=== PATIENT | male | born 1960 | race Caucasian/White ===

== ENCOUNTER 2021-06-18 17:00 | Emergency (ER) | payer OTHER ==
[~2021-06-18] VITALS: Ht 193 cm; Wt 104.3 kg
--- NOTE | 2021-06-18 17:15 | NUR ---
Dr. Koch at bedside for MSE
[2021-06-18] MEDS ORDERED: TDAP DIPH,PERTUSS,TET VAC/PF 0.5 ML DISP.SYRIN IM ONE ×2 (17:30→17:43)
[2021-06-18] MEDS ORDERED: SULF1TAB48 PO (17:59)
[2021-06-18] MEDS ORDERED: CEPH500C2 PO (18:00)
[2021-06-18 18:07] VITALS: BP 140/90
--- NOTE | 2021-06-18 18:08 | NUR ---
Patient has been cleared for discharge by ER MD. Patient discharged to home in stable condition. Written and verbal after care instructions given. Patient verbalizes understanding of instructions. Stressed follow up or return to ER for worsening s/s. Ambulated out of ED in steady gait.
== END 2021-06-18 18:23 | disposition home or self-care (01) ==
LOC: ER 17:05
DX: L03.115 Cellulitis of right lower limb (principal); Z86.19 Personal history of other infectious and parasitic diseases
CPT/HCPCS: 73590; 90715; J3490; J7030

== ENCOUNTER 2022-06-03 18:20 | Emergency (ER) | payer OTHER ==
[~2022-06-03] VITALS: Ht 193 cm; Wt 104.3 kg
[~2022-06-03 18:20] MED LIST: CEPH500C2 PO; SULF1TAB48 PO
--- NOTE | 2022-06-03 19:00 | NUR ---
Patient walked to ER with steady gait. NAD noted
--- NOTE | 2022-06-03 19:22 | NUR ---
Dr Miranda in room for VALERIE
[2022-06-03] MEDS: IV NS 1000 ML 1,000 ML IV ONE (19:30)
[2022-06-03] MEDS ORDERED: VANCOMYCIN IV 0 ML ONE (19:33)
[2022-06-03] MEDS ORDERED: VANCOMYCIN HCL 500 MG VIAL ONE (19:33)
[2022-06-03] MEDS ORDERED: KETOROLAC TROMETHAMINE 30 MG INJ ONE (19:34)
[2022-06-03] MEDS ORDERED: VANCOMYCIN IV 200 ML ONE (19:48)
[2022-06-03 19:57] LABS: HEMATOCRIT 35.9 % (36.7-47.1); MEAN CORPUSCULAR HEMOGLOBIN 29.4 uug (23.8-33.4); MEAN CORPUSCULAR VOLUME 86.4 fL (73.0-96.2); PLATELET COUNT (AUTO) 292 K/uL (152-348)
[2022-06-03] MEDS: KETOROLAC TROMETHAMINE 30 MG INJ IVP ONE (19:58)
[2022-06-03] MEDS: VANCOMYCIN 1G/D5W 200 ML PIGGYBACK IV ONE (19:59)
[2022-06-03 20:20] LABS: BILIRUBIN,DIRECT 0.1 mg/dL (0.0-0.2); BILIRUBIN,TOTAL 0.3 mg/dL (0.2-1.0); CREATININE 0.9 mg/dL (0.6-1.3); POTASSIUM 3.4 mmol/L (3.5-5.1); TOTAL PROTEIN, SERUM 7.4 g/dL (6.4-8.2)
[2022-06-03] MEDS ORDERED: SULF1TAB48 PO (21:28)
--- NOTE | 2022-06-03 21:41 | NUR ---
Patient discharged to home in stable condition. Written and verbal after care instructions given. Patient verbalizes understanding of instructions. Stressed follow up or return to ER for worsening s/s. Patient is a/ox4, NAD noted. Patient is able to walk with steady gait
[2022-06-03 21:44] VITALS: BP 135/89
== END 2022-06-03 21:45 | disposition home or self-care (01) ==
LOC: ER 18:22
DX: L03.115 Cellulitis of right lower limb (principal); Z86.19 Personal history of other infectious and parasitic diseases; R03.0 Elevated blood-pressure reading, without diagnosis of hypertension
CPT/HCPCS: 36415; 73590; 85025; A4663; J1885; J3370; J7040

== ENCOUNTER 2024-03-06 03:09 | Emergency (ER) | payer OTHER ==
[~2024-03-06] VITALS: Ht 193 cm; Wt 108.9 kg
[~2024-03-06 03:09] MED LIST changes: -CEPH500C2 PO
[2024-03-06 03:14] VITALS: O2SAT 97
[2024-03-06] MEDS ORDERED: NAPR-1009 PO (04:17)
[2024-03-06] MEDS ORDERED: CEPH500C2 PO (04:17)
[2024-03-06] MEDS ORDERED: SULF1TAB48 PO (04:17)
[2024-03-06] MEDS ORDERED: BACITRACIN ZINC OINT 15 GM TUBE ONE (04:20)
[2024-03-06] MEDS: BACITRACIN ZINC OINT 15 GM TUBE TOP STA (04:22)
[2024-03-06] MEDS ORDERED: CEphaleXIN 500 MG CAPSULE ONE (04:23)
[2024-03-06] MEDS ORDERED: SULFAMETH/TRIMETH 800/160 MG TABLET ONE (04:23)
[2024-03-06] MEDS: CEphaleXIN 500 MG CAPSULE PO ONE (04:29)
[2024-03-06] MEDS: SULFAMETH/TRIMETH 800/160 MG TABLET PO ONE (04:29)
== END 2024-03-06 05:00 | disposition home or self-care (01) ==
LOC: ER 03:21
DX: S91.331A Puncture wound without foreign body, right foot, initial encounter (principal); L03.115 Cellulitis of right lower limb; Z79.899 Other long term (current) drug therapy; R03.0 Elevated blood-pressure reading, without diagnosis of hypertension; Z60.2 Problems related to living alone; W25.XXXA Contact with sharp glass, initial encounter; Y93.89 Activity, other specified; Y92.89 Other specified places as the place of occurrence of the external cause; Y99.8 Other external cause status
CPT/HCPCS: 73600; 73620; A4606; A4663

== ENCOUNTER 2024-04-21 11:13 | Emergency (ER) | payer OTHER ==
[~2024-04-21] VITALS: Ht 193 cm; Wt 108.9 kg
[~2024-04-21 11:13] MED LIST changes: +CEPH500C2 PO; +NAPR-1009 PO
[2024-04-21 11:21] VITALS: O2SAT 97
[2024-04-21 12:43] LABS: BASOPHILS # (AUTO) 0.1 K/UL (0.0-0.2); BASOPHILS % (AUTO) 0.7 % (0.0-2.0); DIFFERENTIAL COMMENT 0; EOSINOPHILS # (AUTO) 0.2 K/uL (0.0-0.7); EOSINOPHILS % (AUTO) 2.2 % (0.0-7.0); HEMATOCRIT 45.3 % (36.7-47.1); HEMOGLOBIN 15.4 g/dL (12.5-16.3); LYMPHOCYTES # (AUTO) 3.2 K/uL (0.8-4.8); LYMPHOCYTES % (AUTO) 31.9 % (20.5-51.5); MEAN CORPUSCULAR HEMOGLOBIN 29.5 uug (23.8-33.4); MEAN CORPUSCULAR HGB CONC 34 g/dL (32.5-36.3); MEAN CORPUSCULAR VOLUME 86.9 fL (73.0-96.2); MONOCYTES # (AUTO) 1.2 K/uL (0.1-1.30); MONOCYTES % (AUTO) 11.7 % (0.0-11.0); NEUTROPHILS # (AUTO) 5.4 K/uL (1.8-8.9); NEUTROPHILS % (AUTO) 53.5 % (38.5-71.5); PLATELET COUNT (AUTO) 295 K/uL (152-348); RED BLOOD CELL COUNT(AUTO) 5.21 MIL/uL (4.06-5.63); RED CELL DISTRIBUTION WIDTH 15.2 % (12.1-16.2)
[2024-04-21 12:50] LABS: CALCIUM 9.4 mg/dL (8.5-10.1); CARBON DIOXIDE 28 mmol/L (21-32); CHLORIDE 102 mmol/L (98-107); CREATININE 1.2 mg/dL (0.6-1.3); GLUCOSE 136 mg/dL (74-106); SODIUM SERUM 141 mmol/L (136-145); UREA NITROGEN, BLOOD 26 mg/dL (7-18)
[2024-04-21 12:59] LABS: ALANINE AMINOTRANSFERASE 45 U/L (16-63); ALBUMIN 3.4 g/dL (3.4-5.0); ALKALINE PHOSPHATASE 139 U/L (50-136); ASPARTATE AMINOTRANSFERASE 33 U/L (15-37); BILIRUBIN,DIRECT 0.2 mg/dL (0.0-0.2); BILIRUBIN,TOTAL 0.6 mg/dL (0.2-1.0); TOTAL PROTEIN, SERUM 8.2 g/dL (6.4-8.2)
[2024-04-21] MEDS ORDERED: MUPI22OI2 TP (13:26)
[2024-04-21] MEDS ORDERED: CLIN300C3 PO (13:26)
== END 2024-04-21 14:21 | disposition home or self-care (01) ==
LOC: ER 11:13
DX: S91.301A Unspecified open wound, right foot, initial encounter (principal); Z79.899 Other long term (current) drug therapy; Z60.2 Problems related to living alone; X58.XXXA Exposure to other specified factors, initial encounter; Y93.89 Activity, other specified; Y92.89 Other specified places as the place of occurrence of the external cause; Y99.8 Other external cause status
CPT/HCPCS: 36415; 73650; 83605; 84484; 85025; 85730; 87040; A4606; A4663